=== PATIENT | female | born 1990 | race Two or more races ===

== ENCOUNTER 2022-04-22 18:12 | Emergency (ER) | payer BC, MEDICAID ==
[~2022-04-22] VITALS: Ht 165.1 cm; Wt 70.5 kg
[2022-04-22 18:15] VITALS: BP 129/72
== END 2022-04-22 22:42 | disposition home or self-care (01) ==
LOC: EMS 18:13
DX: F12.929 Cannabis use, unspecified with intoxication, unspecified (principal); F41.9 Anxiety disorder, unspecified
CPT/HCPCS: 99283; Z7502